=== PATIENT | male | born 1975 | race Hispanic/Latino ===

== ENCOUNTER 2020-07-16 15:44 | Observation (INO) | payer OTHER, SELFPAY ==
--- NOTE | 2020-07-16 16:26 | RAD ---
Chest one view HISTORY: Syncope. FINDINGS: No comparison. Cardiac silhouette is magnified by projection. Pulmonary vasculature are unremarkable. Mediastinum is midline. No lobar consolidation or evidence of pneumothorax. IMPRESSION : No abnormalities are demonstrated.
[2020-07-16 16:39] LABS: #Basophils 0.1 thou/uL (0.0-0.2); #Eosinphils 0.6 thou/uL (0.0-0.7); #Lymphocytes 1.3 thou/uL (1.20-3.40); #Monocytes 1.1 thou/uL (0.11-0.59); #Neutrophils 7.9 thou/uL (1.40-6.50); %Basophils 1.1 % (0.0-1.0); %Eosinophils 5.7 % (0.0-10.0); %Lymphocytes 11.7 % (21.0-51.0); %Monocytes 10.1 % (0.0-10.0); %Neutrophils 71.6 % (42.0-75.0); Hemoglobin 13.4 g/dL (14.0-18.0); Mean Corpuscular HGB CONC 33.9 g/dL (32.0-36.0); Mean Corpuscular Hemoglobin 32.4 pg (27.0-31.0); Mean Corpuscular Volume 95.5 fL (78.0-98.0); Mean Platelet Volume 8.5 fL (7.4-10.4); Platelet Count 507 thou/uL (130-400); RBC Distribution Width 12.7 % (11.5-14.5); Red Blood Cell (RBC) Count 4.12 mill/uL (4.70-6.10)
[2020-07-16 17:01] LABS: ALT (SGPT) 59 U/L (8-55); AST (SGOT) 32 U/L (5-34); Albumin 3.7 g/dL (3.5-5.0); Alcohol Less than 10 mg/dL (Less than 10); Alkaline Phosphatase 422 U/L (40-110); Anion Gap 15 mmol/L (10-20); BUN (Urea Nitrogen) 11 mg/dL (8.9-20.6); Bilirubin, Total 1.4 mg/dL (0.2-1.2); Calc. Creatinine Clearance 0 mL/min (70-130); Calcium 8.9 mg/dL (7.8-10.44); Carbon Dioxide 23 mmol/L (22-29); Chloride 103 mmol/L (98-107); Estimated GFR-MDRD Greater than 90; Globulin 3.7 g/dL (2.4-3.5); Glucose 91 mg/dL (70-105); Lipase 66 U/L (8-78); Potassium 4.6 mmol/L (3.5-5.1); Protein, Total 7.4 g/dL (6.0-8.3); Sodium 136 mmol/L (136-145)
[2020-07-16] MEDS ORDERED: Ketorolac Tromethamine 30 MG/ML VIAL ONE (17:18)
--- NOTE | 2020-07-16 18:40 | CT ---
CT BRAIN WITHOUT CONTRAST: 07/16/20 HISTORY: Syncope. FINDINGS: No evidence of acute infarct, hemorrhage, midline shift or abnormal extra-axial fluid collections are seen. The ventricular size is normal and the basilar cisterns patent. The bony calvarium is intact. The visualized paranasal sinuses and mastoid air cells are well aerated. IMPRESSION: No CT evidence of acute intracranial process. POS: [facility]
[2020-07-16 20:08] LABS: Troponin I Less than 0.010 ng/mL (< 0.028)
--- NOTE | 2020-07-16 22:16 | PDOC.HHP ---
Hospitalist HPI - History of Present Illness Cc History of Present Illness: This is a 44-year-old male patient with recently diagnosed liver cirrhosis who presents with recurrent syncope. Of note he was recently in the ED on account of swelling of his feet and jaundice and was noted to have cirrhosis on evaluation. He was supposed to follow-up on outpatient basis. Today on his follow-up visit while talking to the clinic staff he passed out while standing for a while. Patient notes that he had a similar event occurring about a month ago when upon waking up from bed and going to the toilet he passed out while trying to sit down after. He denies any associated palpitations, chest pain. He does not know for how long he was on the ground. He is unsure whether he is hit his head. 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 On presentation vitals showed BP of 113/63, pulse 68, respiratory rate 20, temperature 99.3, saturation 98% on room air. His labs showed a WBC of 11.0, hemoglobin 13.4 and platelets 547. Bilirubin was slightly elevated at 1.4, with alkaline phosphatase at [address] scan of his head revealed no acute intracranial process. Chest x-ray also showed no abnormalities. No concerning arrhythmia on EKG. He was given IV fluids 1 L and 10 mg ketorolac. Hospitalist team was consulted for admission. Hospitalist ROS - Review of Systems Constitutional: denies: fever, chills, sweats Respiratory: denies: cough, shortness of breath, hemoptysis, SOB with excertion Gastrointestinal: denies: nausea, vomiting, abdominal pain, diarrhea Genitourinary: denies: dysuria, frequency, incontinence Musculoskeletal: reports: leg pain Neurological: denies: weakness, numbness, incoordination, change in speech Hospitalist History - Past Medical History Other Medical History: Cirrhosis, syncope - Family History Other Family History: None of significance - Social History Smoking Status: Never smoker Alcohol: reports: None, Occassional Drugs: denies: cocaine Living Situation: With Family - Exam General Appearance: awake alert General - other findings: No acute distress Eye: PERRL, anicteric sclera ENT: normocephalic atraumatic, no oropharyngeal lesions, moist mucosa Heart: RRR, no murmur, no gallops, no rubs Respiratory: no wheezes, no rales, no ronchi, no tachypnea Gastrointestinal: soft, non-tender, non-distended, normal bowel sounds Extremities: no cyanosis, no clubbing, no edema Neurological: cranial nerve grossly intact, no weakness Psychiatric: normal behavior, A&O x 3 Hospitalist Results - Labs Result Diagrams: 07/17/20 04:51 07/17/20 04:51 Lab results: WBC 11.0 thou/uL (4.8-10.8) H 07/16/20 16:29 Hgb 13.4 g/dL (14.0-18.0) L 07/16/20 16:29 Hct 39.4 % (42.0-52.0) L 07/16/20 16:29 MCV 95.5 fL (78.0-98.0) 07/16/20 16:29 Plt Count 507 thou/uL (130-400) H 07/16/20 16:29 Neutrophils % 71.6 % (42.0-75.0) 07/16/20 16:29 Sodium 136 mmol/L (136-145) 07/16/20 16:29 Potassium 4.6 mmol/L (3.5-5.1) 07/16/20 16:29 Chloride 103 mmol/L (98-107) 07/16/20 16:29 Carbon Dioxide 23 mmol/L (22-29) 07/16/20 16:29 BUN 11 mg/dL (8.9-20.6) 07/16/20 16:29 Creatinine 0.79 mg/dL (0.7-1.3) 07/16/20 16:29 Glucose 91 mg/dL (70-105) 07/16/20 16:29 Calcium 8.9 mg/dL (7.8-10.44) 07/16/20 16:29 Total Bilirubin 1.4 mg/dL (0.2-1.2) H 07/16/20 16:29 AST 32 U/L (5-34) 07/16/20 16:29 ALT 59 U/L (8-55) H 07/16/20 16:29 Alkaline Phosphatase 422 U/L (40-110) H 07/16/20 16:29 Ammonia 25 umol/L (18-72) 07/16/20 16:30 Troponin I Less than 0.010 ng/mL (< 0.028) 07/16/20 19:32 Serum Total Protein 7.4 g/dL (6.0-8.3) 07/16/20 16:29 Albumin 3.7 g/dL (3.5-5.0) 07/16/20 16:29 Lipase 66 U/L (8-78) 07/16/20 16:29 Hospitalist H&P A/P - Plan Plan: This is a 44-year-old male patient with recently diagnosed liver cirrhosis presenting with recurrent syncope over the past month. Syncope Etiology unclearcardiogenic/vasovagal/orthostatic EKG shows no concerning arrhythmias Orthostatic vitals ordered We will monitor on telemetry overnight for arrhythmias Echocardiogram in a.m. Cardiac consult if any significant abnormalities noted. Liver cirrhosis Recently diagnosed No decompensation at the moment. We will closely monitor. Right leg pain Received ketorolac which has improved Likely musculoskeletal from work-related activity. VT prophylaxisNone CODE STATUSfull code
[2020-07-16 23:11] LABS: Troponin I Less than 0.010 ng/mL (< 0.028)
[2020-07-16 23:14] VITALS: BMI 31.3
[2020-07-17] MEDS ORDERED: Ketorolac Tromethamine 30 MG/ML VIAL IVP SCH (04:45)
[2020-07-17 05:23] LABS: #Eosinphils 0.6 thou/uL (0.0-0.7); #Lymphocytes 1.2 thou/uL (1.20-3.40); #Neutrophils 6.9 thou/uL (1.40-6.50); %Basophils 0.5 % (0.0-1.0); %Eosinophils 6.4 % (0.0-10.0); %Lymphocytes 11.9 % (21.0-51.0); %Monocytes 10.6 % (0.0-10.0); %Neutrophils 70.6 % (42.0-75.0); Hemoglobin 11.7 g/dL (14.0-18.0); Mean Corpuscular Hemoglobin 32.4 pg (27.0-31.0); Mean Corpuscular Volume 95.3 fL (78.0-98.0); Mean Platelet Volume 8.6 fL (7.4-10.4); Platelet Count 445 thou/uL (130-400); RBC Distribution Width 12.5 % (11.5-14.5); Red Blood Cell (RBC) Count 3.61 mill/uL (4.70-6.10); White Blood Cell (WBC) Count 9.8 thou/uL (4.8-10.8)
[2020-07-17 05:45] LABS: Anion Gap 12 mmol/L (10-20); BUN (Urea Nitrogen) 12 mg/dL (8.9-20.6); Calc. Creatinine Clearance 175 mL/min (70-130); Calcium 8.4 mg/dL (7.8-10.44); Carbon Dioxide 24 mmol/L (22-29); Chloride 106 mmol/L (98-107); Estimated GFR-MDRD Greater than 90; Glucose 123 mg/dL (70-105); Sodium 138 mmol/L (136-145)
--- NOTE | 2020-07-17 11:35 | PDOC.HOSPP ---
- Subjective Encounter Date: 07/17/20 Encounter Time: 11:33 Subjective: Mr. Vasquez was seen today in follow-up of syncope. He says that he was having pain in is right leg prior to the event. He also has some pain in his left leg as well. He denies any chest pain or respiratory symptoms. - Objective Vital Signs & Weight: Vital Signs (12 hours) Temp Pulse Resp BP BP BP BP 07/17/20 11:09 98.3 F 69 18 116/61 07/17/20 07:34 98.3 F 60 16 110/66 121/74 117/66 07/17/20 04:35 76 18 118/58 L Pulse Ox 07/17/20 11:09 97 07/17/20 07:34 97 07/17/20 04:35 98 Weight Weight 212 lb I&O: 07/16/20 07/17/20 07/18/20 06:59 06:59 06:59 Intake Total 240 Output Total 700 700 Balance -700 -460 Result Diagrams: 07/17/20 04:51 07/17/20 04:51 - Exam Eye: PERRL, anicteric sclera Heart: RRR, no murmur, no gallops, no rubs Respiratory: CTAB, no wheezes, no rales, no ronchi, normal chest expansion Gastrointestinal: soft, non-tender, non-distended, normal bowel sounds, no palpable masses, no hepatomegaly Extremities: no cyanosis Hosp A/P (1) Syncope Code(s): R55 - SYNCOPE AND COLLAPSE Status: Acute (2) Right leg pain Code(s): M79.604 - PAIN IN RIGHT LEG Status: Acute - Plan * Syncope- ? etiology- await the result of the Echo * Right leg pain- will check an ultrasound- the pulses are good, no lesions or erythema * He may need to Outpatient Cardiology evaluation, and have an event monitor placed. * Elevated Alk phos, and recent diagnosis of cirrhosis-will request records from [place]
[2020-07-17 12:51] LABS: SARS-CoV-2 MS2 Positive; SARS-CoV-2 N Gene Negative; SARS-CoV-2 S Gene Negative; SARS-CoV-2 by NAA Not Detected (NotDetected); SARS-CoV-2 orf1ab Negative
--- NOTE | 2020-07-17 14:02 | ULT ---
ULTRASOUND DOPPLER DUPLEX ARTERIA BILATERAL: DATE: 07/17/2020 HISTORY: 44-year-old male with bilateral lower extremity pain TECHNIQUE: Grayscale, color-flow, and spectral analysis, of major arteries of bilateral lower extremities. FINDINGS: Atherosclerosis: At least mild in all visualized arteries. Highest peak systolic velocity in cm/s, followed by pulsed Doppler waveform: RIGHT: Common femoral: 135; Triphasic Profunda femoral: 80; Triphasic Superficial femoral, proximal: 120; Triphasic Superficial femoral, mid: 115; Triphasic Superficial femoral, distal: 65; Triphasic Popliteal: 50; Triphasic Posterior tibial: 75; Triphasic Anterior tibial: 55; Triphasic Dorsalis pedis: 70; Triphasic LEFT: Common femoral: 120; Triphasic Profunda femoral: 105; Triphasic Superficial femoral, proximal: 110; Triphasic Superficial femoral, mid: 125; Triphasic Superficial femoral, distal: 80; Triphasic Popliteal: 75; Triphasic Posterior tibial: 80; Triphasic Anterior tibial: 75; Triphasic Dorsalis pedis: 75; Triphasic IMPRESSION: No evidence of arterial occlusive disease.
--- NOTE | 2020-07-17 14:22 | CT ---
CT PULMONARY ANGIOGRAM WITH IV CONTRAST AND 3-D POSTPROCESSING: HISTORY:Syncope, elevated d-dimer FINDINGS: There is fair contrast opacification of the pulmonary arterial vasculature without filling defects to suggest pulmonary embolism. The thoracic aorta is well opacified without aneurysm or dissection. No pleural or pericardial effusions are seen. No pneumothoraces, focal areas of consolidation or noncalcified lung nodules are noted. There are dep endent changes in the posterior lung bases. There is a calcified granuloma in the right upper lobe. There are mild degenerative changes in the spine. IMPRESSION: No CT evidence of pulmonary embolism.
[2020-07-17] MEDS ORDERED: Iopamidol 370 76% 100 ML VIAL ONE (14:41)
[2020-07-17 15:38] LABS: Amphetamine Not Detected (NotDetected); Barbiturates Screen Not Detected (NotDetected); Benzodiazepine Screen Not Detected (NotDetected); Cocaine Metabolite Screen Not Detected (NotDetected); Medtox Control Line Valid? VALID (VALID); Medtox Reader # READER 1; Methadone Not Detected (NotDetected); Methamphetamine Not Detected (NotDetected); Opiate Screen Not Detected (NotDetected); Oxycodone Screen Not Detected (NotDetected); Phencyclidine (PCP) Not Detected (NotDetected); THC/Cannabinoid Screen Not Detected (NotDetected); Tricyclic Screen Not Detected (NotDetected)
[2020-07-17 18:26] LABS: HBSAg Index 0.15 S/CO (0-0.99); Hep A IgM AB Non-Reactive (NonReactive); Hep A IgM S/CO 0.45 S/CO (0-0.79); Hep B Surf Ag Non-Reactive S/CO (NonReactive); Hep C IgG Ab Non-Reactive (NonReactive); Hep C Index 0.16 S/CO (0-0.79); Hepatitis B Core IgM Abs Non-Reactive (NonReactive)
[2020-07-17] MEDS ORDERED: FLU VACC QS2020-21(6MOS UP)/PF 60 MCG/0.5 ML SYRINGE IM ONE (21:00)
[2020-07-17] MEDS: traMADol HCl 50 MG TAB PO PRN (23:58)
--- NOTE | 2020-07-18 07:15 | ULT ---
GALLBLADDER ULTRASOUND: Date: 07/17/2020 HISTORY: Right upper quadrant pain. FINDINGS: Real-time imaging of the right upper quadrant shows a normal appearing gallbladder. The common duct i s 3.0 mm. Technologist describes a negative ultrasound Rawls's sign. Visualized liver parenchyma erich ws no focal findings. Right kidney is normal in size. The lower pole region is obscured by gas. No ob struction. Pancreas is obscured. IMPRESSION: Unremarkable right upper quadrant ultrasound. POS: [facility]
[2020-07-18] MEDS: traMADol HCl 50 MG TAB PO PRN (07:49)
[2020-07-18] MEDS ORDERED: Cyclobenzaprine 10 MG TAB PO PRN (14:29)
--- NOTE | 2020-07-18 14:32 | PDOC.HOSPP ---
- Subjective Encounter Date: 07/18/20 Encounter Time: 14:31 Subjective: Mr. Vasquez was seen today in follow-up of leg pain and syncope. He says his legs are hurting again. He saysit is from the kness down in both legs. He denies any back pain. He also notes redness of his eyes for the past 2 weeks. - Objective Vital Signs & Weight: Vital Signs (12 hours) Temp Pulse Resp BP BP BP BP 07/18/20 11:31 98.6 F 66 16 109/65 07/18/20 07:43 98.9 F 64 18 117/57 L 105/55 L 114/64 07/18/20 03:51 99.4 F 73 16 102/58 L Pulse Ox 07/18/20 11:31 95 07/18/20 07:43 95 07/18/20 03:51 94 L Weight Weight 212 lb I&O: 07/17/20 07/18/20 07/19/20 06:59 06:59 06:59 Intake Total 1680 Output Total 700 1000 Balance -700 680 Result Diagrams: 07/17/20 04:51 07/17/20 04:51 Hospitalist ROS - Medication Medications: Active Medications Generic Name Dose Route Start Last Admin Trade Name Freq PRN Reason Stop Dose Admin Tramadol HCl 50 mg 07/17/20 16:33 07/18/20 07:49 Tramadol Hcl 50 Mg Tab PO 50 mg Q6H PRN Administration Mild-Moderate Pain (1-5) - Exam Eye: PERRL, anicteric sclera Eye - other findings: + erythema in both sclera Heart: RRR, no murmur, no gallops, no rubs, normal peripheral pulses Respiratory: CTAB, no wheezes, no rales, no ronchi, normal chest expansion, no tachypnea, normal percussion Gastrointestinal: soft, non-tender, non-distended, normal bowel sounds, no palpable masses, no hepatomegaly Extremities: no cyanosis, no edema Musculoskeletal: normal tone, normal strength, no muscle wasting (Equivocal straight leg raises, goos distal pulses) Hosp A/P (1) Syncope Code(s): R55 - SYNCOPE AND COLLAPSE Status: Acute (2) Right leg pain Code(s): M79.604 - PAIN IN RIGHT LEG Status: Acute - Plan * Syncope- ? etiology- await the result of the Echo * Right leg pain- ? etiology- but the alk phos was elevated- this may be coming from the bones instead of the liver- will check an X-ray of the lower extremities * Repeat the LFT's. Abdominal ultrasound was negative for cirrhosis * Will also screen for connective tissue disease * He may need to Outpatient Cardiology evaluation, and have an event monitor placed. * After the X-ray's he can be discharged home, and follow-up with the lab results as an out-patient
[2020-07-18 15:11] LABS: ALT (SGPT) 42 U/L (8-55); AST (SGOT) 24 U/L (5-34); Albumin 3.5 g/dL (3.5-5.0); Alkaline Phosphatase 346 U/L (40-110); Bilirubin, Direct 0.8 mg/dL (0.1-0.3); Bilirubin, Total 1.1 mg/dL (0.2-1.2); Protein, Total 7.9 g/dL (6.0-8.3)
[2020-07-18 15:12] LABS: Magnesium 2.1 mg/dL (1.6-2.6)
--- NOTE | 2020-07-18 15:38 | RAD ---
XR Lumbar Spine 2 Or 3 View HISTORY: Pain in both legs FINDINGS: No fracture, subluxation or bony destruction is seen. Minimal degenerative changes are seen in the lo wer lumbar spine.
--- NOTE | 2020-07-18 15:38 | RAD ---
XR Tib Fib Rt Leg 2 View HISTORY: Right leg pain FINDINGS: The right tibia and fibula demonstrate no bony abnormality.
--- NOTE | 2020-07-18 15:48 | RAD ---
XR Tib Fib Lt Leg 2 View HISTORY: Left leg pain FINDINGS: The left tibia and fibula demonstrate no bony abnormality.
[2020-07-18] MEDS ORDERED: Artificial Tear Sol 15 ML BOT EA EYE PRN (16:14)
[2020-07-18 16:22] VITALS: BP 110/61; TEMP 98.3
[2020-07-18] MEDS ORDERED: Polyvinyl Alcohol 1.4%/Povidone 0.6% Opth Drops EA EYE PRN (16:45)
--- NOTE | 2020-07-19 01:39 | DIS ---
DATE OF ADMISSION: 07/16/2020 DATE OF DISCHARGE: 07/18/2020 PRIMARY CARE PHYSICIAN: Addie Yates. DISCHARGE DISPOSITION: Home. DISCHARGE DIAGNOSES: 1. Syncope, etiology is unknown. 2. Bilateral lower extremity pain, possibly musculoskeletal. 3. Elevated liver function test, which was resolving. CODE STATUS: Full code. ALLERGIES: NO KNOWN DRUG ALLERGIES. DISCHARGE MEDICATION: Flexeril 10 mg p.o. t.i.d. as needed. IMAGING DONE DURING THE HOSPITAL STAY: The patient had a CT scan of the brain, which was negative for any acute intracranial process. The patient also had a CT angiogram of the chest, which was negative for pulmonary embolism. The patient had a lower extremity arterial Dopplers, which were negative for any flow-limiting disease. The patient had an abdominal ultrasound in which there was no evidence of any hepatocellular disease. The common duct size was normal. There is a negative Rawls sign. The patient had a hepatitis panel, which was negative. The patient had an echocardiogram in which the ejection fraction was normal at 50% to 55%. There was no wall motion abnormalities and no significant valvular heart disease. HOSPITAL COURSE: Mr. Pedro Meza is a pleasant 44-year-old gentleman, who had been told that he may have cirrhosis after he had presented to the emergency room a few weeks before. The patient was going to the followup appointment at the manager room when apparently he passed out. He was brought to the hospital for evaluation. He had a CT scan of the brain, which was negative. CT angiogram of the chest, which was also negative. He was wearing a monitor, which did not demonstrate any significant arrhythmia and an echocardiogram was essentially negative. He also was complaining of bilateral leg pain, the etiology of which was very unclear. He would indicate that the area of pain was in the lateral calf, almost in a linear-like area from the knee down to the ankle. There is no evidence of any erythema or edema. The pulses were normal. X-ray of the bones were done due to an elevated alkaline phosphatase. This proved to be negative. 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 He has been discharged home on a trial of Flexeril. We also got an GISSELLE and sedimentation rate and CPK. The CPK was normal. Sedimentation rate was only slightly elevated and the GISSELLE was pending along with autoimmune panel. He was told to follow up with these results in the outpatient setting with his family physician at the [facility]. He also recommended that he see a locomotive crane operator helper in the outpatient setting and potentially wear an event monitor. Job ID: [id number]
[2020-07-20 16:41] LABS: ANA Symphony (Qualitative) Negative (Negative); ANA Symphony (Quantitative) 0.3 Ratio (< 0.7 Negative)
== END 2020-07-18 18:34 | disposition home or self-care (01) ==
LOC: ERS 15:44 → 2SW 22:23
PROVIDERS: ADMIT Student in an Organized Health Care Education/Training Program; ATTEND Student in an Organized Health Care Education/Training Program
DX: R55 Syncope and collapse (principal); M79.605 Pain in left leg; M79.604 Pain in right leg; K74.60 Unspecified cirrhosis of liver; Z20.828 Contact with and (suspected) exposure to other viral communicable diseases
CPT/HCPCS: 36415; 70450; 71045; 71275; 72100; 76705; 80048; 80053; 80074; 80076; 80306; 80307; 82140; 82550; 82977; 83690; 83735; 84484; 85025; 85379; 85652; 86038; 86225; 87635; 87804; 90471; 90662; 90732; 93005; 93306; 93923; 96374; 96376; G0008; G0009; G0378; J1885; Q9967; U0003